=== PATIENT | female | born 2005 | race Caucasian/White ===

== ENCOUNTER 2024-01-19 02:18 | Emergency (ER) | payer OTHER ==
[~2024-01-19] VITALS: Ht 167.6 cm; Wt 60.0 kg
[2024-01-19 02:20] VITALS: O2SAT 100
[2024-01-19] MEDS: LIDOCAINE HCL/PF 1% 10 MG/ML 5ML VIAL INFIL ONE (03:00)
[2024-01-19] MEDS: TETANUS, DIPHTHERIA, PERTUSSIS VAC/PF 0.5ML (>10YR OLD) IM ONE (03:00)
[2024-01-19] MEDS ORDERED: BO1 TP (04:58)
[2024-01-19 05:04] VITALS: BP 125/76; PULSE 76; RESP 18; TEMP 36.83628; O2SAT 100
== END 2024-01-19 05:10 | disposition home or self-care (01) ==
LOC: ER 02:18
DX: S61.412A Laceration without foreign body of left hand, initial encounter (principal); Y04.0XXA Assault by unarmed brawl or fight, initial encounter; Y93.89 Activity, other specified; Y92.89 Other specified places as the place of occurrence of the external cause; Y99.8 Other external cause status
CPT/HCPCS: 70450; 72125; 90715; 90471; 99285; J3490; Z7610